=== PATIENT | male | born 1995 | race African-American/Black ===

== ENCOUNTER 2023-03-17 21:26 | Emergency (ER) | payer SELFPAY ==
[~2023-03-17] VITALS: Ht 182.9 cm; Wt 135.0 kg
[2023-03-17 21:51] VITALS: BP 133/89; TEMP 98.1; O2SAT 98
[2023-03-18] MEDS ORDERED: IBUP-2030 MT (00:15)
[2023-03-18] MEDS ORDERED: AMOX-494 MT (00:15)
[2023-03-18 00:38] VITALS: PULSE 88; RESP 16
== END 2023-03-18 00:39 | disposition home or self-care (01) ==
LOC: ER 21:26
DX: J02.9 Acute pharyngitis, unspecified (principal)
CPT/HCPCS: 99283